=== PATIENT | female | born 1985 | race Two or more races ===

== ENCOUNTER → 2018-11-12 | Outpatient (CLI) | payer OTHER | END | disposition home or self-care (01) | LOC: RX STUDY 10:05 | DX: N93.0 Postcoital and contact bleeding (principal) ==

== ENCOUNTER 2019-12-28 15:15 | Inpatient (IN) | payer OTHER ==
[~2019-12-28] VITALS: Ht 157.5 cm; Wt 3.2 kg
[2020-01-11] MEDS ORDERED: PRENATABS RX T1 EACH PO (18:25)
[2020-01-14] MEDS ORDERED: OXYC1TAB9 PO (08:02)
== END 2020-01-14 14:31 | disposition home or self-care (01) | DRG 788 ==
LOC: OB/GYN 01-11 16:54 → LDR 01-11 16:54 → SURG-SUITE 01-11 23:12 → OB/GYN 01-12 03:16
PROVIDERS: ADMIT Obstetrics & Gynecology; ATTEND Obstetrics & Gynecology
PROC: 4A0HXFZ Measurement of Products of Conception, Cardiac Rhythm, External Approach (ICD-10-PCS; 2020-01-11)
PROC: 3E033VJ Introduction of Other Hormone into Peripheral Vein, Percutaneous Approach (ICD-10-PCS; 2020-01-11)
PROC: 10D00Z1 Extraction of Products of Conception, Low, Open Approach (ICD-10-PCS; principal; 2020-01-11 21:00)
DX: O36.8330 Maternal care for abnormalities of the fetal heart rate or rhythm, third trimester, not applicable or unspecified (principal); O76 Abnormality in fetal heart rate and rhythm complicating labor and delivery; Z3A.39 39 weeks gestation of pregnancy; Z37.0 Single live birth; Z20.828 Contact with and (suspected) exposure to other viral communicable diseases

== ENCOUNTER 2020-01-11 14:38 | Outpatient (CLI) | payer OTHER ==
[2020-01-11] MEDS ORDERED: PRENATABS RX T1 EACH PO (18:25)
== END 2020-01-11 16:54 | disposition still patient (30) ==
LOC: NST 14:38
PROVIDERS: ATTEND Obstetrics & Gynecology Maternal & Fetal Medicine
DX: Z34.83 Encounter for supervision of other normal pregnancy, third trimester (principal)